=== PATIENT | female | born 2000 ===

== ENCOUNTER 2020-05-06 20:29 | Emergency (ER) | payer SELFPAY ==
[2020-05-06 20:33] VITALS: BP 152/84; PULSE 97; RESP 18; TEMP 36.3; O2SAT 100
--- NOTE | 2020-05-06 20:38 | ECG_ITS ---
Measurements Intervals [place] Rate: 84 P: 46 SD: 146 QRS: 33 QRSD: 90 T: 35 QT: 365 QTc: 432 Interpretive Statements SINUS RHYTHM NONSPECIFIC ST & T-WAVE ABNORMALITY- DIFFUSE LEADS BORDERLINE ECG Electronically Signed On 05-07-2020 12:00:12 CDT by Agustin Calero D.O.
--- NOTE | 2020-05-06 21:17 | PC.NURSE ---
pt to desk states that she does not have time to wait to see edp at this time due to having an new born at home. states that she will follow up with primary at home. pt leaving ed with steady gait.
== END 2020-05-06 21:17 | disposition left against medical advice (07) ==
LOC: ANHED 21:30
PROVIDERS: Emergency Provider Emergency Medicine; PCP Internal Medicine
DX: R42 Dizziness and giddiness (principal)
CPT/HCPCS: 93005; 99199